=== PATIENT | female | born 1965 | race Hispanic/Latino ===

== ENCOUNTER 2021-06-13 20:27 | Emergency (ER) | payer SELFPAY ==
[~2021-06-13] VITALS: Ht 167.6 cm; Wt 75.2 kg
[2021-06-14 01:59] LABS: RSV AMPLIFICATION POSITIVE (NEGATIVE)
[2021-06-14 02:34] LABS: VENOUS BASE EXCESS -0.3 (-2.0-2.0); VENOUS HCO3 24.5 MEQ/L (23.0-27.0); VENOUS O2 SATURATION 80.9 % (60.0-80.0); VENOUS PARTIAL PRESSURE CO2 40.4 mmHg (38.0-50.0); VENOUS PARTIAL PRESSURE O2 44.9 mmHg (30.0-50.0); VENOUS STANDARD HCO3 23.8 MEQ/L; VENOUS TOTAL CO2 25.7 MEQ/L (24.0-28.0)
[2021-06-14 02:36] LABS: BASO # 0.1 10^3/uL (0.0-0.2); BASO % 0.4 % (0.0-1.0); EOS # 0.1 10^3/uL (0.0-0.5); EOS % 0.5 % (0.0-3.0); HEMATOCRIT 44.7 % (36.0-47.0); HEMOGLOBIN 14.8 g/dl (12.0-15.5); LYMPH % 25.6 % (24.0-44.0); MEAN CORPUSCULAR HEMOGLOBIN 27.7 pg (27.0-33.0); MEAN CORPUSCULAR HGB CONC 33.1 g/dl (32.0-36.5); MEAN CORPUSCULAR VOLUME 83.7 fl (80.0-96.0); MONO # 0.9 10^3/uL (0.0-0.8); MONO % 7.4 % (2.0-8.0); NEUTROPHILS # 7.7 10^3/uL (1.5-8.5); NEUTROPHILS % 65.3 % (36.0-66.0); PLATELET COUNT, AUTOMATED 390 10^3/uL (150-450); RED BLOOD COUNT 5.34 10^6/uL (4.00-5.40); WHITE BLOOD COUNT 11.8 10^3/uL (4.0-10.0)
[2021-06-14 02:59] LABS: ERYTHROCYTE SEDIMENTATION RATE 45 mm/hr (0-30)
[2021-06-14 03:03] LABS: C REACTIVE PROTEIN QUANTITATIV 7.45 MG/DL (0.00-0.30); CK-MB VALUE MASS < 1.0 NG/ML (<3.6); CPK CREATINE PHOSPHOKINASE 68 U/L (26-192); MB/CK RELATIVE INDEX 1.47 (< OR =4); TROPONIN I < 0.02 NG/ML (< 0.10)
[2021-06-14] MEDS ORDERED: COMBIVENT RESPIMAT 100-20MCG INHALER 4GM INH ONE (04:15)
[2021-06-14] MEDS ORDERED: predniSONE 20 MG TAB PO ONE (04:15)
--- NOTE | 2021-06-14 04:41 | REPVR ---
PROCEDURE INFORMATION: Exam: XR Chest Exam date and time: 06/14/2021 2:05 AM Age: 55 years old Clinical indication: Shortness of breath; Additional info: SOB TECHNIQUE: Imaging protocol: XR of the chest. Views: 1 view. COMPARISON: No relevant prior studies available. FINDINGS: Lungs: Lung volumes are relatively shallow. There is no significant consolidation or evidence of pulmonary edema. Pleural spaces: There is a linear opacity in the right mid lung region, which may represent thickening of the right minor fissure or a small amount of fluid within the fissure. There is otherwise no evidence of a pleural effusion. No pneumothorax. Heart/Mediastinum: The heart is normal in size. Bones/joints: Unremarkable. IMPRESSION: 1. Linear opacity in the right side, probably thickening of the right minor fissure or fluid in the minor fissure. 2. Relatively low lung volumes but no significant consolidation or evidence of pulmonary edema. Electronically signed by: [place] On 06/14/2021 04:40:47 AM
[2021-06-14 05:07] VITALS: BP 129/75
[2021-06-14] MEDS ORDERED: PRED20TA PO (05:11)
--- NOTE | 2021-06-14 06:44 | ECGEPIP ---
[facility] - ED Test Date: 2021-06-14 Pat Name: KARLA MOREL Department: Room: - Gender: Female [employer]: : 1965 Requested By: SALENA Garrett PA-C Order Number: [id number] Reading MD: Shine Mccray Measurements Intervals [place] Rate: 94 P: 44 CT: 138 QRS: 38 QRSD: 70 T: 42 QT: 368 QTc: 460 Interpretive Statements Normal sinus rhythm NO PRIORS FOR COMPARISON Electronically Signed on 06-14-2021 6:43:48 EDT by Shine Mccray
[2021-06-14] MEDS ORDERED: COMBIVENT RESPIMAT 100-20MCG INHALER 4GM INH SCH (09:00)
== END 2021-06-14 05:36 | disposition home or self-care (01) ==
LOC: M ED 20:27
DX: R05 Cough (principal); B97.4 Respiratory syncytial virus as the cause of diseases classified elsewhere
CPT/HCPCS: 71045; 82550; 82553; 82803; 84484; 85025; 85652; 86140; 87631; 93005; 99284; J7512